=== PATIENT | male | born 1960 | race Caucasian/White ===

== ENCOUNTER → 2016-10-16 | Outpatient (CLI) | payer MEDICARE, MEDICAID ==
--- NOTE | 2016-10-16 15:11 | Diagnostic Imaging Report ---
PROCEDURE: MRI right joint upper extremity without contrast. TECHNIQUE: Multiplanar, multisequence MR imaging of the right shoulder was performed without contrast. COMPARISON: None available. INDICATION: Right shoulder pain with injury approximately 10 years ago. FINDINGS: Rotator cuff: There is a focal full-thickness and transversely oriented tear of the posterior insertional fibers of the supraspinatus. This tear measures approximately 6 mm in AP direction, and the torn fibers are retracted less than 1 cm centrally. There is associated mild atrophy of the supraspinatus muscle belly. The infraspinatus, teres minor and subscapularis are intact. Glenoid labrum: By non-arthrogram imaging, the glenoid labrum appears intact. No paralabral cyst. Long head of biceps: The long head of the biceps is normal in morphology and position. No tear or significant tendinopathy. Bones and cartilage: No fracture or Hill-Sachs deformity of the humeral head. Subcortical cystic change in the greater tuberosity are likely due to overlying rotator cuff pathology. No high-grade chondromalacia in the glenohumeral joint. Mild osteoarthritis of the acromioclavicular joint including inferior osteophytes and degenerative subchondral edema on both sides of the joint. Soft tissues: There is a small amount of fluid in subacromial subdeltoid space compatible with bursitis. No glenohumeral joint effusion. No MRI findings to suggest adhesive capsulitis. IMPRESSION: 1. Focal full-thickness tear in the posterior supraspinatus. There is mild fatty atrophy of the supraspinatus muscle belly. 2. Mild subacromial and subdeltoid bursitis. 3. Mild osteoarthritis of the the acromioclavicular joint, including small inferior projecting osteophytes. Dictated by: Dictated on workstation # [id number]
== END ==
LOC: RAD 13:31
PROVIDERS: ATTEND Nurse Practitioner Family
DX: M25.511 Pain in right shoulder (principal)
CPT/HCPCS: 73221

== ENCOUNTER → 2019-07-17 | Outpatient (CLI) | payer MEDICARE ==
--- NOTE | 2019-07-17 14:11 | Diagnostic Imaging Report ---
EXAMINATION: CT Chest without contrast (lung screening). TECHNIQUE: Multiple contiguous axial images were obtained through the chest without the use of intravenous contrast according to lung cancer screening protocol. All CT scans use one or more of the following dose optimizing techniques: automated exposure control, MA and/or KvP adjustment based on a patient size and exam type, or iterative reconstruction. HISTORY: 40 pack year history of smoking. COMPARISON: None available. FINDINGS: The lungs are clear without edema or pneumonia. No pleural effusion or pneumothorax. No suspicious nodules. There is scarring in the left apex. Heart size is normal. No pericardial effusion. Aorta is normal in caliber. There is no axillary or supraclavicular lymphadenopathy. There is no mediastinal lymphadenopathy. Limited views of the upper abdomen are normal. There are no suspicious osseus lesions. IMPRESSION: 1. No suspicious pulmonary nodules. LUNG-RADS CATEGORY: 1 MODIFIER: None. OTHER SIGNIFICANT FINDINGS: None. Dictated by: Dictated on workstation # [id number]
== END ==
LOC: RAD 13:16
PROVIDERS: ATTEND Nurse Practitioner Family
DX: Z12.2 Encounter for screening for malignant neoplasm of respiratory organs (principal); F17.210 Nicotine dependence, cigarettes, uncomplicated

== ENCOUNTER → 2022-01-20 | Outpatient (CLI) | payer MEDICARE ==
[~2022-01-20] MED LIST: RT-ALBUTEROL SULF 2.5 MG/3 ML PRE-MIX VIAL INH ONE
== END ==
LOC: RT 08:17
PROVIDERS: ATTEND Nurse Practitioner Family
DX: Z13.83 Encounter for screening for respiratory disorder NEC (principal); J30.2 Other seasonal allergic rhinitis; J44.9 Chronic obstructive pulmonary disease, unspecified; F17.200 Nicotine dependence, unspecified, uncomplicated
CPT/HCPCS: 94060; 94726; 94729